=== PATIENT | female | born 1995 | race Caucasian/White ===

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

== ENCOUNTER 2018-03-12 15:47 | Emergency (ER) | payer SELFPAY ==
[2018-03-12 16:08] VITALS: BP 105/62
--- NOTE | 2018-03-12 16:48 | EDM.PDOC ---
ED HPI GENERAL MEDICAL PROBLEM - General Chief Complaint: Upper Extremity Injury/Pain Stated Complaint: L WRIST INJURY Time Seen by Provider: 03/12/18 16:17 Source of Information: Reports: Patient, RN Notes Reviewed History Limitations: Reports: No Limitations - History of Present Illness INITIAL COMMENTS - FREE TEXT/NARRATIVE: Patient is a 22 year old female who presents to the ED for the evaluation of a left wrist injury. She states that she slipped and fell on the ice and ended up breaking her fall with top of her hand. This resulted in her palm of her hand bending into her forearm. She is able to move the wrist, however it is painful. She would rate her pain at a 6/10. She denies any elbow pain or numbness/ tingling to her left hand. Left Hand Pain Score (Numeric/FACES): 8 - Related Data Allergies Allergy/AdvReac Type Severity Reaction Status Date / Time amoxicillin Allergy Rash Verified 03/12/18 16:07 onion Allergy Airway Verified 03/12/18 16:08 Tightness Home Meds: Home Meds . [No Known Home Meds] 01/10/18 [History] Past Medical History - Past Health History Medical/Surgical History: Denies Medical/Surgical History Gastrointestinal History: Reports: Irritable Bowel Syndrome - Past Surgical History HEENT Surgical History: Reports: Tonsillectomy Social & Family History - Tobacco Use Smoking Status *Q: Never Smoker - Caffeine Use Caffeine Use: Reports: Coffee, Energy Drinks, Soda, Tea - Recreational Drug Use Recreational Drug Use: No Review of Systems - Review of Systems Review Of Systems: See Below Constitutional: Reports: No Symptoms Eyes: Reports: No Symptoms Ears: Reports: No Symptoms Nose: Reports: No Symptoms Mouth/Throat: Reports: No Symptoms Respiratory: Reports: No Symptoms Cardiovascular: Reports: No Symptoms GI/Abdominal: Reports: No Symptoms Genitourinary: Reports: No Symptoms Musculoskeletal: Reports: Joint Pain (left wrist pain). Denies: Arm Pain, Muscle Pain, Muscle Stiffness Skin: Reports: No Symptoms Neurological: Reports: No Symptoms Psychiatric: Reports: No Symptoms ED EXAM, GENERAL - Physical Exam Exam: See Below Free Text/Narrative:: exam limited to left upper extremity Exam Limited By: No Limitations General Appearance: Alert, WD/WN, No Apparent Distress Respiratory/Chest: No Respiratory Distress, Lungs Clear, Normal Breath Sounds, No Accessory Muscle Use, Chest Non-Tender Cardiovascular: Normal Peripheral Pulses, Regular Rate, Rhythm, No Murmur Extremities: Normal Inspection, Normal Capillary Refill, Limited Range of Motion (left wrist due to pain), Other (tender about the entire left wrist, nontender left hand, nontender left forearm.) Neurological: Alert, Oriented, Normal Cognition, Normal Reflexes, No Motor/ Sensory Deficits (pt is able to squeeze my fingers, but is limited due to pain) Psychiatric: Normal Affect Skin Exam: Warm, Dry, Intact, Normal Color, No Rash Course - Vital Signs Last Recorded V/S: Last Vital Signs Temp 97.9 F 03/12/18 16:05 Pulse 81 03/12/18 16:05 Resp 16 03/12/18 16:05 BP 105/62 03/12/18 16:05 Pulse Ox 100 03/12/18 16:05 - Orders/Labs/Meds Orders: Active Orders 24 hr Category Date Time Status Wrist Comp Min 3V Lt [CR] Stat Exams 03/12/18 16:18 Ordered - Re-Assessments/Exams Free Text/Narrative Re-Assessment/Exam: 03/12/18 16:48 Pt presents to the ED for the evaluation of left wrist pain s/p fall. Left wrist x-ray has been ordered for further evaluation. Pt was offered 30 mg IM toradol or 600 mg PO ibuprofen and she declined. 03/12/18 17:00 Left wrist x-ray does not demonstrate any signs of acute fracture. This was reviewed with Dr. Foreman. Departure - Departure Time of Disposition: 17:00 Disposition: Home, Self-Care 01 Condition: Fair Clinical Impression: Sprain of left wrist Qualifiers: Encounter type: initial encounter Qualified Code(s): S63.502A - Unspecified sprain of left wrist, initial encounter - Discharge Information *PRESCRIPTION DRUG MONITORING PROGRAM REVIEWED*: No *COPY OF PRESCRIPTION DRUG MONITORING REPORT IN PATIENT KAVITA: No Referrals: PCP,None [Primary Care Provider] - Forms: ED Department Discharge Additional Instructions: You have been evaluated in the ED for your left wrist injury. Your x-ray demonstrated no acute fracture of your left wrist. Please use ice as tolerated to the affected area. You may take tylenol 500 mg or ibuprofen 600mg q6 hrs for pain relief. Please do so until you have a tolerable level of pain with activity. Do not exceed 4000mg tylenol in one day. Do not exceed 3200mg ibuprofen in one day. Please return to ED if your symptoms should change or worsen. - My Orders Last 24 Hours: My Active Orders 03/12/18 16:18 Wrist Comp Min 3V Lt [CR] Stat - Assessment/Plan Last 24 Hours: My Active Orders 03/12/18 16:18 Wrist Comp Min 3V Lt [CR] Stat
--- NOTE | 2018-03-13 07:31 | CR ---
Left wrist: Four views of the left wrist were obtained. Comparison: No previous study. Joint spaces are preserved. No fracture, dislocation or other bony abnormality is seen. Impression: 1. No abnormality is seen on left wrist exam. Diagnostic code #1
== END 2018-03-12 17:10 | disposition home or self-care (01) ==
LOC: JD.ED 15:47
DX: S63.502A Unspecified sprain of left wrist, initial encounter (principal); W00.0XXA Fall on same level due to ice and snow, initial encounter; Z88.1 Allergy status to other antibiotic agents; Z91.018 Allergy to other foods
CPT/HCPCS: 73110-26-LT; 73110-LT; 99282; 99283

== ENCOUNTER 2018-06-09 22:21 | Emergency (ER) | payer SELFPAY ==
[2018-06-09 22:42] VITALS: BP 130/76
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
== END 2018-06-09 22:40 | disposition home or self-care (01) ==
LOC: JD.ED 22:21
DX: S20.312A Abrasion of left front wall of thorax, initial encounter (principal); S30.811A Abrasion of abdominal wall, initial encounter; V53.5XXA Driver of pick-up truck or van injured in collision with car, pick-up truck or van in traffic accident, initial encounter; Z91.018 Allergy to other foods
CPT/HCPCS: 99282; 99283

== ENCOUNTER 2019-08-04 22:22 | Emergency (ER) | payer SELFPAY ==
[2019-08-04 22:36] VITALS: BP 115/74; PULSE 88
--- NOTE | 2019-08-04 22:50 | EDM.PDOC ---
ED HPI GENERAL MEDICAL PROBLEM - General Chief Complaint: Lower Extremity Injury/Pain Stated Complaint: foot injury Time Seen by Provider: 08/04/19 22:45 - History of Present Illness INITIAL COMMENTS - FREE TEXT/NARRATIVE: 23-year-old female presents the emergency room with an injury to her forefoot. Patient was walking in the house and they had a cooler sitting there and she jammed her pinky toe in to 1 of the wheels on the cooler and she thought that the toe turned outward. She has no other complaints associated with this unfortunate mishap. The patient is moving around but it is very tender around the base of the pinky toe. Right Toe-Little Pain Score (Numeric/FACES): 9 - Related Data Allergies Allergy/AdvReac Type Severity Reaction Status Date / Time amoxicillin Allergy Rash Verified 08/04/19 22:37 onion Allergy Airway Verified 08/04/19 22:37 Tightness Home Meds: Home Meds . [No Known Home Meds] 01/10/18 [History] Past Medical History - Past Health History Medical/Surgical History: Denies Medical/Surgical History Gastrointestinal History: Reports: Irritable Bowel Syndrome Endocrine/Metabolic History: Reports: Obesity/BMI 30+ - Past Surgical History HEENT Surgical History: Reports: Tonsillectomy Social & Family History - Family History Family Medical History: Noncontributory - Tobacco Use Smoking Status *Q: Never Smoker Second Hand Smoke Exposure: No - Caffeine Use Caffeine Use: Reports: None - Recreational Drug Use Recreational Drug Use: No - Living Situation & Occupation Living situation: Reports: Single, with Significant Other (Fiance) Occupation: Employed (judicial administrative assistant) Review of Systems - Review of Systems Review Of Systems: See Below Constitutional: Reports: No Symptoms Respiratory: Reports: No Symptoms Cardiovascular: Reports: No Symptoms Musculoskeletal: Reports: Other (See history of present illness) ED EXAM, GENERAL - Physical Exam Exam: See Below Exam Limited By: No Limitations General Appearance: Alert, No Apparent Distress Respiratory/Chest: No Respiratory Distress, Lungs Clear, Normal Breath Sounds Cardiovascular: Regular Rate, Rhythm, No Edema, No Murmur Extremities: Other (Lamination of right foot reveals no apparent skin injury. She is a little bit of redness around the base of the pinky toe and into the distal portion of the fifth metatarsal. She has no hindfoot pain with palpation no midfoot pain with palpation. She does not wish to move that toe any more than she absolutely has to. Neurovascular status of the foot is entirely within normal limits. No other abnormalities identified) Course - Vital Signs Last Recorded V/S: Last Vital Signs Temp 36.6 C 08/04/19 22:33 Pulse 88 08/04/19 22:33 Resp 16 08/04/19 22:33 BP 115/74 08/04/19 22:33 Pulse Ox 99 08/04/19 22:33 - Orders/Labs/Meds Orders: Active Orders 24 hr Category Date Time Status Foot Comp Min 3V Rt [CR] Stat Exams 08/04/19 22:48 Taken Durable Medical Equipment for Discharge [DME for Oth 08/04/19 23:12 Ordered Discharge] [COMM] Stat - Re-Assessments/Exams Free Text/Narrative Re-Assessment/Exam: 08/04/19 23:52 The patient is doing better with the postop shoe. We will discharge her have her follow-up in clinic at the end of this week Tylenol or Motrin as needed for pain. Nation of her foot was done no obvious fracture dislocation proximal phalange of the fifth toe in one view had a very subtle area I do not believe this is a fracture but I cannot exclude. I did advise the patient of this. Departure - Departure Time of Disposition: 23:54 Disposition: Home, Self-Care 01 Clinical Impression: Injury of toe on left foot Clinical Impression: (Ruled Out): Toe injury - Discharge Information Referrals: PCP,None [Primary Care Provider] - Forms: ED Department Discharge Additional Instructions: To the emergency room with any questions problems or worsening symptoms. Tylenol or Motrin as needed for pain. Follow-up in the hospital clinic at the end of this week for recheck. [phone]. There the postop shoe at all times until told to do otherwise. Sepsis Event Note - Evaluation Sepsis Screening Result: No Definite Risk - Focused Exam Vital Signs: Vital Signs Temp Pulse Resp BP Pulse Ox 08/04/19 22:33 36.6 C 88 16 115/74 99 Date Exam was Performed: 08/04/19 Time Exam was Performed: 23:52 - My Orders Last 24 Hours: My Active Orders 08/04/19 22:48 Foot Comp Min 3V Rt [CR] Stat 08/04/19 23:12 Durable Medical Equipment for Discharge [DME for Discharge] [COMM] Stat - Assessment/Plan Last 24 Hours: My Active Orders 08/04/19 22:48 Foot Comp Min 3V Rt [CR] Stat 08/04/19 23:12 Durable Medical Equipment for Discharge [DME for Discharge] [COMM] Stat
--- NOTE | 2019-08-05 06:17 | CR ---
Right foot: 4 views of the right foot were obtained. Comparison: No previous foot study is available. Joint spaces are preserved. No fracture, dislocation or other bony abnormality is appreciated. Impression: 1. No abnormality is appreciated on right foot exam. Diagnostic code #1 This report was dictated in MDT
== END 2019-08-05 | disposition home or self-care (01) ==
LOC: JD.ED 22:22
DX: S99.922A Unspecified injury of left foot, initial encounter (principal); E66.9 Obesity, unspecified; Z68.37 Body mass index [BMI] 37.0-37.9, adult; Z88.1 Allergy status to other antibiotic agents; Z91.018 Allergy to other foods; W23.0XXA Caught, crushed, jammed, or pinched between moving objects, initial encounter
CPT/HCPCS: 73630-26-RT; 73630-RT; 99282; 99283-25

== ENCOUNTER 2022-04-27 08:10 | Emergency (ER) | payer OTHER ==
[2022-04-27] MEDS ORDERED: Lactated Ringers 1,000 ML IV ONE (10:38)
[2022-04-27 13:16] VITALS: BP 107/74; PULSE 100
== END 2022-04-27 13:08 | disposition home or self-care (01) ==
LOC: JD.ED 08:10
DX: O99.891 Other specified diseases and conditions complicating pregnancy (principal); R10.30 Lower abdominal pain, unspecified; O99.212 Obesity complicating pregnancy, second trimester; E66.9 Obesity, unspecified; Z88.0 Allergy status to penicillin; Z91.018 Allergy to other foods; Z3A.17 17 weeks gestation of pregnancy
CPT/HCPCS: 76815; 81001; 96360; 99284; J7120

== ENCOUNTER 2022-06-29 18:20 | Emergency (ER) | payer BC ==
[2022-06-29 18:34] VITALS: BP 106/61; PULSE 67
[2022-06-29 19:42] LABS: ESTIMATED GFR 124 mL/min (>60)
[2022-06-29] MEDS ORDERED: Iopamidol 755 Mg/ML 100 ML Bottle IVPUSH ONE (21:13)
[2022-06-29] MEDS ORDERED: Sodium Chloride 0.9% 100 ML IV SCH (21:15)
== END 2022-06-29 22:00 | disposition home or self-care (01) ==
LOC: JD.ED 18:20
DX: R07.89 Other chest pain (principal); E66.9 Obesity, unspecified; Z88.0 Allergy status to penicillin; Z91.018 Allergy to other foods; Z68.37 Body mass index [BMI] 37.0-37.9, adult
CPT/HCPCS: 36415; 71275; 80053; 81003; 84484; 85025; 85379; 86140; 93005; 99285; J3490; Q9967; 93010; 99284

== ENCOUNTER 2022-10-07 00:57 | Inpatient (IN) | payer BC ==
[2022-10-07] MEDS ORDERED: Nalbuphine 10 MG/0.5 ML Syringe IVPUSH PRN (13:17)
[2022-10-07] MEDS ORDERED: Ondansetron 4 MG/2 ML SDV IVPUSH PRN (13:17)
[2022-10-07] MEDS ORDERED: Lidocaine 1% 50 ML MDV INJECT PRN (13:17)
[2022-10-07] MEDS ORDERED: Oxytocin/Lactated Ringers 10 UNIT/1,000 ML BAG IV SCH ×2 (13:30)
[2022-10-07] MEDS ORDERED: Misoprostol 25 MCG (1/4 of 100 MCG) Tab VAG ONE (13:58)
[2022-10-07 14:10] LABS: BASOPHILS ABSOLUTE AUTO 0.04 K/mm3 (0.01-0.08); BASOPHILS PERCENT AUTO 0.3 % (0.1-1.2); EOSINOPHILS PERCENT AUTO 0.9 (0.7-5.8); HEMATOCRIT 36.5 % (34.1-44.9); HEMOGLOBIN 12.3 gm/dl (11.2-15.7); IMMATURE GRAN ABSOLUTE AUTO 0.07 K/mm3 (0.00-0.10); IMMATURE GRAN PERCENT AUTO 0.6 % (<=1.0); LYMPHOCYTES ABSOLUTE AUTO 1.86 K/mm3 (1.18-3.74); LYMPHOCYTES PERCENT AUTO 15.8 % (19.3-51.7); MEAN CORPUSCULAR HEMOGLOBIN 30.2 pg (25.6-32.2); MEAN CORPUSCULAR HGB CONC 33.7 g/dl (32.2-35.5); MEAN CORPUSCULAR VOLUME 89.7 fl (79.4-94.8); MEAN PLATELET VOLUME 9.6 fl (9.4-12.3); MONOCYTES ABSOLUTE AUTO 0.92 K/mm3 (0.24-0.36); MONOCYTES PERCENT AUTO 7.8 % (4.7-12.5); NEUTROPHILS ABSOLUTE AUTO 8.76 K/mm3 (1.56-6.13); NEUTROPHILS PERCENT AUTO 74.6 % (34.0-71.1); PLATELET COUNT,PLT 300 K/mm3 (182-369); RED BLOOD CELL COUNT 4.07 M/mm3 (3.98-5.22); WHITE BLOOD CELL COUNT,WBC 11.75 K/mm3 (3.98-10.04)
[2022-10-07] MEDS: Lactated Ringers 1,000 ML IV SCH ×3 (14:39→19:11)
[2022-10-07] MEDS ORDERED: fentaNYL 100 MCG/2 ML SDV EPIDUR PRN (16:35)
[2022-10-07] MEDS ORDERED: ePHEDrine 50 MG/ML SDV IVPUSH PRN (16:35)
[2022-10-07] MEDS ORDERED: diphenhydrAMINE 50 MG/ML SDV IVPUSH PRN (16:35)
[2022-10-07] MEDS: Bupivacaine/fentaNYL/NS 100 ML Bag EPIDUR PRN ×2 (17:15→23:28)
[2022-10-07] MEDS: Acetaminophen 325 MG Tab PO ONE (20:35)
[2022-10-08] MEDS ORDERED: Lidocaine 1% 10 ML MDV INJECT ONE (01:18)
[2022-10-08] MEDS ORDERED: Benzocaine/Menthol 20%-0.5% Spray 78 GM Cannister TOP PRN (02:08)
[2022-10-08] MEDS ORDERED: Magnesium Hydroxide 400 MG/5 ML Susp 30 ML Cup PO PRN (02:08)
[2022-10-08] MEDS ORDERED: Hydrocortisone Acetate 25 MG Supp RECTAL PRN (02:08)
[2022-10-08] MEDS ORDERED: Witch Hazel Medicated Pads 40/Jar TOP PRN (02:08)
[2022-10-08] MEDS ORDERED: Oxytocin/Lactated Ringers 10 UNIT/1,000 ML BAG IV SCH (02:08)
[2022-10-08] MEDS: Ibuprofen 600 MG Tab PO PRN ×3 (02:24→14:46)
[2022-10-08] MEDS: Acetaminophen 325 MG Tab PO PRN ×3 (02:25→22:18)
[2022-10-08] MEDS: Docusate Sodium 100 MG Cap PO PRN ×2 (08:45→22:18)
[2022-10-08] MEDS: Prenatal Multivitamin with Calcium/Folic Acid/Iron Tab PO SCH (08:45)
[2022-10-08] MEDS: Acetaminophen 325 MG Tab PO ONE (08:46)
[2022-10-08] MEDS ORDERED: Prenatal Multivitamin with Calcium/Folic Acid/Iron Tab PO SCH (09:00)
[2022-10-09] MEDS: Ibuprofen 600 MG Tab PO PRN ×2 (03:34→15:55)
[2022-10-09] MEDS: Acetaminophen 325 MG Tab PO PRN (04:00)
[2022-10-09] MEDS: Docusate Sodium 100 MG Cap PO PRN (14:21)
[2022-10-09] MEDS: Prenatal Multivitamin with Calcium/Folic Acid/Iron Tab PO SCH (14:21)
[2022-10-10] MEDS: Ibuprofen 600 MG Tab PO PRN ×2 (00:02→08:53)
[2022-10-10] MEDS: Acetaminophen 325 MG Tab PO PRN (00:03)
[2022-10-10] MEDS: Docusate Sodium 100 MG Cap PO PRN (08:53)
[2022-10-10] MEDS: Prenatal Multivitamin with Calcium/Folic Acid/Iron Tab PO SCH (08:53)
[2022-10-10 11:51] VITALS: BP 122/68; PULSE 73
== END 2022-10-10 11:55 | disposition home or self-care (01) | DRG 560 ==
LOC: JD.OB 00:57 → OBSVTOIN 10-08 00:57 → JD.OB 10-08 00:58
PROVIDERS: ADMIT Obstetrics & Gynecology; ATTEND Obstetrics & Gynecology
PROC: 10E0XZZ Delivery of Products of Conception, External Approach (ICD-10-PCS; principal; 2022-10-08)
PROC: 10907ZC Drainage of Amniotic Fluid, Therapeutic from Products of Conception, Via Natural or Artificial Opening (ICD-10-PCS; 2022-10-08)
PROC: 3E033VJ Introduction of Other Hormone into Peripheral Vein, Percutaneous Approach (ICD-10-PCS; 2022-10-08)
PROC: 0KQM0ZZ Repair Perineum Muscle, Open Approach (ICD-10-PCS; 2022-10-08)
PROC: 0UQMXZZ Repair Vulva, External Approach (ICD-10-PCS; 2022-10-08)
PROC: 3E0R3BZ Introduction of Anesthetic Agent into Spinal Canal, Percutaneous Approach (ICD-10-PCS; 2022-10-08)
PROC: 00HU33Z Insertion of Infusion Device into Spinal Canal, Percutaneous Approach (ICD-10-PCS; 2022-10-08)
PROC: 3E0P7VZ Introduction of Hormone into Female Reproductive, Via Natural or Artificial Opening (ICD-10-PCS; 2022-10-08)
DX: O48.0 Post-term pregnancy (principal); O70.1 Second degree perineal laceration during delivery; Z37.0 Single live birth; O26.53 Maternal hypotension syndrome, third trimester; O76 Abnormality in fetal heart rate and rhythm complicating labor and delivery; Z3A.40 40 weeks gestation of pregnancy; O99.214 Obesity complicating childbirth; E66.9 Obesity, unspecified; Z88.0 Allergy status to penicillin; Z91.018 Allergy to other foods; Z90.49 Acquired absence of other specified parts of digestive tract; Z79.899 Other long term (current) drug therapy
CPT/HCPCS: 36415; 51702; 59025; 59409; 85025; 86592; 86850; 86900; 86901; A9270-GY; C1726; J2001; J2590; J3490; J7120

== ENCOUNTER 2022-10-21 04:53 | Emergency (ER) | payer BC ==
[2022-10-21] MEDS ORDERED: Sodium Chloride 0.9% 1,000 ML IV ONE (06:23)
[2022-10-21] MEDS ORDERED: Morphine 4 MG/ML Syringe IVPUSH ONE (06:23)
[2022-10-21] MEDS ORDERED: Ondansetron 4 MG/2 ML SDV IVPUSH ONE (06:23)
[2022-10-21] MEDS ORDERED: Iopamidol 612 MG/ML 100 ML Bottle IVPUSH ONE (06:48)
[2022-10-21 06:56] LABS: BASOPHILS ABSOLUTE AUTO 0.07 K/mm3 (0.01-0.08); BASOPHILS PERCENT AUTO 0.5 % (0.1-1.2); EOSINOPHILS ABSOLUTE AUTO 0.14 K/mm3 (0.04-0.36); EOSINOPHILS PERCENT AUTO 1.1 (0.7-5.8); HEMATOCRIT 34.8 % (34.1-44.9); HEMOGLOBIN 11.5 gm/dl (11.2-15.7); IMMATURE GRAN ABSOLUTE AUTO 0.08 K/mm3 (0.00-0.10); IMMATURE GRAN PERCENT AUTO 0.6 % (<=1.0); LYMPHOCYTES ABSOLUTE AUTO 1.39 K/mm3 (1.18-3.74); LYMPHOCYTES PERCENT AUTO 10.5 % (19.3-51.7); MEAN CORPUSCULAR HEMOGLOBIN 29.6 pg (25.6-32.2); MEAN CORPUSCULAR VOLUME 89.7 fl (79.4-94.8); MONOCYTES ABSOLUTE AUTO 0.79 K/mm3 (0.24-0.36); NEUTROPHILS ABSOLUTE AUTO 10.73 K/mm3 (1.56-6.13); NEUTROPHILS PERCENT AUTO 81.3 % (34.0-71.1); PLATELET COUNT,PLT 411 K/mm3 (182-369); RED BLOOD CELL COUNT 3.88 M/mm3 (3.98-5.22)
[2022-10-21 07:18] LABS: A/G RATIO 0.8 (1-2); ALBUMIN 3.2 g/dl (3.4-5.0); ANION GAP 14.2 (5-15); BILIRUBIN TOTAL 0.6 mg/dL (0.2-1.0); BUN/CREATININE RATIO 13.3 (14-18); CALCIUM 8.9 mg/dL (8.5-10.1); CREATININE 0.9 mg/dL (0.55-1.02); EST CRCL DRUG DOSING (CG) 89.45 mL/min; POTASSIUM,K 4.2 mEq/L (3.5-5.1); PROTEIN TOTAL,TP 7.4 g/dl (6.4-8.2)
[2022-10-21] MEDS ORDERED: Hyoscyamine 0.125 MG Tab.SL SL ONE (07:26)
[2022-10-21] MEDS ORDERED: HYDROmorphone 0.5 MG/0.5 ML Syringe IVPUSH ONE (07:26)
[2022-10-21 08:02] LABS: APPEARANCE,URINE CLEAR (Clear); BILIRUBIN,URINE NEGATIVE (Negative); COLOR,URINE YELLOW (Yellow); GLUCOSE,URINE NEGATIVE (Negative); KETONES,URINE NEGATIVE (Negative); LEUKOCYTE ESTERASE,URINE 2+ (Negative); NITRITE,URINE NEGATIVE (Negative); OCCULT BLOOD,URINE TRACE-INTACT (Negative); PROTEIN,URINE NEGATIVE (Negative); UROBILINOGEN,URINE 0.2 (0.2-1.0)
[2022-10-21 08:33] LABS: BACTERIA,URINE OCCASIONAL /hpf (FEW); MUCUS,URINE NOT SEEN /hpf (FEW); RBC,URINE 0-5 /hpf (0-5); RENAL EPITHELIAL CELLS,URINE 0-5 /hpf (0-5); SQUAMOUS EPITHELIAL CELLS,UR 0-5 /hpf (0-5); WBC,URINE 0-5 /hpf (0-5)
[2022-10-21 10:10] VITALS: PULSE 52
[2022-10-21 11:21] VITALS: BP 113/79
== END 2022-10-21 10:50 | disposition home or self-care (01) ==
LOC: JD.ED 04:53
DX: K80.00 Calculus of gallbladder with acute cholecystitis without obstruction (principal); K85.90 Acute pancreatitis without necrosis or infection, unspecified; K21.9 Gastro-esophageal reflux disease without esophagitis; J45.909 Unspecified asthma, uncomplicated; E66.9 Obesity, unspecified; Z68.34 Body mass index [BMI] 34.0-34.9, adult; Z88.0 Allergy status to penicillin; Z91.018 Allergy to other foods; Z79.899 Other long term (current) drug therapy
CPT/HCPCS: 36415; 74177; 76705; 80053; 81001; 82977; 83690; 85025; 86140; 96361; 96374; 96375; 99284; A9270; J1170; J2270; J2405; J7030; Q9967

== ENCOUNTER 2022-10-22 20:07 | Emergency (ER) | payer BC ==
[2022-10-22] MEDS ORDERED: HYDROmorphone 1 MG/ML Syringe IVPUSH ONE (21:09)
[2022-10-22] MEDS ORDERED: Metoclopramide 10 MG/2 ML SDV IVPUSH ONE (21:09)
[2022-10-22] MEDS ORDERED: Dextrose 5%-0.9% NaCl 1,000 ML IV SCH (21:15)
[2022-10-22 21:42] LABS: HEMATOCRIT 37.2 % (34.1-44.9); HEMOGLOBIN 12.2 gm/dl (11.2-15.7); MEAN CORPUSCULAR HEMOGLOBIN 29.4 pg (25.6-32.2); MEAN CORPUSCULAR HGB CONC 32.8 g/dl (32.2-35.5); MEAN CORPUSCULAR VOLUME 89.6 fl (79.4-94.8); MEAN PLATELET VOLUME 9.4 fl (9.4-12.3); PLATELET COUNT,PLT 424 K/mm3 (182-369); RED BLOOD CELL COUNT 4.15 M/mm3 (3.98-5.22); WHITE BLOOD CELL COUNT,WBC 9.03 K/mm3 (3.98-10.04)
[2022-10-22 22:00] LABS: INR 0.96; PROTHROMBIN TIME 10.3 SECONDS (9.7-12.0)
[2022-10-22 22:01] LABS: PTT,PARTIAL THROMBOPLSTIN TIME 25.4 SECONDS (21.7-31.4)
[2022-10-22 22:02] LABS: A/G RATIO 0.8 (1-2); ALBUMIN 3.4 g/dl (3.4-5.0); ANION GAP 12.3 (5-15); BILIRUBIN TOTAL 1.5 mg/dL (0.2-1.0); C-REACTIVE PROTEIN 1.3 mg/dL (<1.0); CALCIUM 9.2 mg/dL (8.5-10.1); EST CRCL DRUG DOSING (CG) 71.14 mL/min; POTASSIUM,K 4.3 mEq/L (3.5-5.1); PROTEIN TOTAL,TP 7.9 g/dl (6.4-8.2)
[2022-10-22 22:13] LABS: BAND PERCENT MAN 1 % (0-10); BASOPHILS PERCENT MAN 0 (0.1-1.2); EOSINOPHILS PERCENT MAN 3 % (0.7-5.8); LYMPHOCYTES % ATYPICAL MANUAL 0 %; LYMPHOCYTES PERCENT MAN 35 % (20-40); MONOCYTES PERCENT MAN 3 % (2-10); PLATELET COUNT ESTIMATE INCREASED
[2022-10-23] MEDS ORDERED: Dextrose 5%-Lactated Ringers 1,000 ML IV SCH (02:00)
[2022-10-23 03:55] VITALS: BP 106/55; PULSE 57
[2022-10-23] MEDS ORDERED: HYDROmorphone 0.5 MG/0.5 ML Syringe IVPUSH ONE (06:46)
[2022-10-23] MEDS ORDERED: Metoclopramide 10 MG/2 ML SDV IVPUSH ONE (06:47)
== END 2022-10-23 09:00 ==
LOC: JD.ED 20:07
DX: K80.42 Calculus of bile duct with acute cholecystitis without obstruction (principal); E66.9 Obesity, unspecified; Z68.37 Body mass index [BMI] 37.0-37.9, adult; Z88.0 Allergy status to penicillin; Z91.018 Allergy to other foods
CPT/HCPCS: 36415; 74176; 80053; 82977; 83690; 83735; 85007; 85027; 85610; 85730; 86140; 96361; 96365; 96366; 96375; 99285; J1170; J2765; J7042; J7121; 99284